=== PATIENT | female | born 1970 | race Asian ===

== ENCOUNTER 2023-09-19 12:59 | Emergency (ER) | payer OTHER ==
[~2023-09-19] VITALS: Ht 157.5 cm; Wt 62.3 kg
[2023-09-19 13:15] VITALS: TEMP 98
[2023-09-19] MEDS ORDERED: PRED-554 PO (15:46)
[2023-09-19] MEDS ORDERED: HYDR30CR3 TP (15:46)
[2023-09-19] MEDS: PredniSONE 20 MG TABLET PO ONE (16:07)
[2023-09-19] MEDS ORDERED: TRI2515C TP (16:10)
[2023-09-19 16:13] VITALS: BP 166/92; PULSE 78; RESP 16
== END 2023-09-19 16:14 | disposition home or self-care (01) ==
LOC: EMS 13:01
DX: L25.9 Unspecified contact dermatitis, unspecified cause (principal); I10 Essential (primary) hypertension; Z98.890 Other specified postprocedural states
CPT/HCPCS: 99283; J7512

== ENCOUNTER 2023-11-14 10:10 | Emergency (ER) | payer OTHER ==
[~2023-11-14] VITALS: Ht 157.5 cm; Wt 62.7 kg
[~2023-11-14 10:10] MED LIST: HYDR30CR3 TP; PRED-554 PO; TRI2515C TP
[2023-11-14 10:11] VITALS: TEMP 98.2
[2023-11-14] MEDS ORDERED: PRED-554 PO (11:50)
[2023-11-14] MEDS ORDERED: AMLO-257 PO (11:52)
[2023-11-14] MEDS ORDERED: DIPH-1243 PO (11:53)
[2023-11-14] MEDS: PredniSONE 20 MG TABLET PO ONE (12:13)
[2023-11-14] MEDS: DiphenhydrAMINE HCL 25 MG CAPSULE PO ONE (12:13)
[2023-11-14 12:18] VITALS: BP 155/90; PULSE 80; RESP 16
== END 2023-11-14 12:30 | disposition home or self-care (01) ==
LOC: EMS 10:10
DX: T78.49XA Other allergy, initial encounter (principal); I10 Essential (primary) hypertension; Z98.890 Other specified postprocedural states; X58.XXXA Exposure to other specified factors, initial encounter
CPT/HCPCS: 99283; J7512

== ENCOUNTER 2024-02-07 16:37 | Emergency (ER) | payer OTHER ==
[~2024-02-07] VITALS: Ht 157.5 cm; Wt 61.4 kg
[~2024-02-07 16:37] MED LIST changes: +AMLO-257 PO; +DIPH-1243 PO
[2024-02-07 16:49] VITALS: BP 184/86; PULSE 92; RESP 16; TEMP 98.7
[2024-02-07 17:02] LABS: COVID AG,FIA SOURCE NASAL SWAB
[2024-02-07 17:21] LABS: SARS-COV2 (COVID) ANTIGEN,FIA Negative (Negative)
[2024-02-07] MEDS ORDERED: GUAIFDM PO (18:13)
[2024-02-07] MEDS ORDERED: ACET-66 PO (18:13)
[2024-02-07] MEDS ORDERED: AMLO-257 PO (18:16)
== END 2024-02-07 18:21 | disposition home or self-care (01) ==
LOC: EMS 16:43
DX: J06.9 Acute upper respiratory infection, unspecified (principal); I10 Essential (primary) hypertension; Z20.822 Contact with and (suspected) exposure to COVID-19; Z98.890 Other specified postprocedural states
CPT/HCPCS: 99283

== ENCOUNTER 2024-08-16 20:55 | Emergency (ER) | payer OTHER ==
[~2024-08-16] VITALS: Ht 157.5 cm; Wt 61.0 kg
[~2024-08-16 20:55] MED LIST changes: +ACET-66 PO; +GUAIFDM PO
[2024-08-16 21:08] VITALS: TEMP 98.4
[2024-08-16 22:07] VITALS: BP 129/84; PULSE 82; RESP 16; O2SAT 100
[2024-08-17] MEDS: LORazepam 1 MG TABLET PO ONE (00:14)
[2024-08-17 00:37] LABS: BASOPHILS % (AUTO) 1.5 % (0.0-2.0); EOSINOPHILS % (AUTO) 2.4 % (1.0-6.0); HEMOGLOBIN 9.6 g/dL (12.0-16.0); LYMPHOCYTES # (AUTO) 1.7 K/uL (1.0-4.8); LYMPHOCYTES % (AUTO) 38.2 % (22.0-44.0); MEAN CORPUSCULAR HEMOGLOBIN 22.2 pg (26.0-34.0); MEAN CORPUSCULAR HGB CONC 30.9 G/dL (31.0-37.0); MEAN CORPUSCULAR VOLUME 72 fL (80-100); MONOCYTES # (AUTO) 0.2 K/uL (0.1-1.0); MONOCYTES % (AUTO) 4.7 % (2.0-9.0); NEUTROPHILS # (AUTO) 2.3 K/uL (1.8-7.7); NEUTROPHILS % (AUTO) 53.2 % (40.0-70.0); PLATELET COUNT (AUTO) 358 K/uL (150-450); RED BLOOD CELL COUNT(AUTO) 4.32 MIL/uL (4.00-5.20); RED CELL DISTRIBUTION WIDTH 19.8 % (11.5-14.5); WHITE BLOOD COUNT (AUTO) 4.4 K/uL (4.5-11.0)
[2024-08-17 00:42] LABS: ANION GAP 10 mmol/L (8-16); CALCIUM, TOTAL 8.9 mg/dL (8.8-10.5); CARBON DIOXIDE 28 mmol/L (22-29); CHLORIDE 99 mmol/L (98-107); CREATININE 0.81 mg/dL (0.60-1.30); GLOMERULAR FILTR. RATE CALC > 60 mL/min (>60); GLUCOSE,RANDOM 106 mg/dL (70-110); POTASSIUM 3.3 mmol/L (3.5-5.1); SODIUM SERUM 137 mmol/L (136-145); UREA NITROGEN, BLOOD 7 mg/dL (7-18)
[2024-08-17 00:50] LABS: ALCOHOL, BLOOD (SERUM) 259 mg/dL (0-10)
[2024-08-17 02:30] LABS: RBC MORPHOLOGY COMMENT ABNORMAL RBC MORPH
== END 2024-08-17 05:56 | disposition home or self-care (01) ==
LOC: EMS 20:55
DX: F41.9 Anxiety disorder, unspecified (principal); F10.129 Alcohol abuse with intoxication, unspecified; I10 Essential (primary) hypertension; Z79.52 Long term (current) use of systemic steroids; Z79.899 Other long term (current) drug therapy; Y90.8 Blood alcohol level of 240 mg/100 ml or more
CPT/HCPCS: 99283; 80048; 85025; G0480

== ENCOUNTER 2024-09-29 13:50 | Emergency (ER) | payer OTHER ==
[~2024-09-29] VITALS: Ht 154.9 cm; Wt 62.3 kg
[2024-09-29 13:57] VITALS: BP 175/95; PULSE 82; RESP 18; TEMP 97.8; O2SAT 98
[2024-09-29] MEDS: ACETAMINOPHEN 500 MG TABLET PO ONE (17:42)
== END 2024-09-29 18:37 | disposition home or self-care (01) ==
LOC: EMS 13:51
DX: S90.32XA Contusion of left foot, initial encounter (principal); I10 Essential (primary) hypertension; Z79.52 Long term (current) use of systemic steroids; Z79.899 Other long term (current) drug therapy; Z98.890 Other specified postprocedural states; W19.XXXA Unspecified fall, initial encounter; Y93.89 Activity, other specified; Y92.89 Other specified places as the place of occurrence of the external cause; Y99.0 Civilian activity done for income or pay
CPT/HCPCS: 99284

== ENCOUNTER 2024-10-12 23:57 | Emergency (ER) | payer OTHER ==
[~2024-10-12] VITALS: Ht 154.9 cm; Wt 65.0 kg
[2024-10-13 00:10] VITALS: BP 166/88; PULSE 77; RESP 16; TEMP 98.3; O2SAT 100
[2024-10-13] MEDS ORDERED: CEPH-558 PO (02:45)
[2024-10-13] MEDS ORDERED: DIPH-1243 PO (02:45)
[2024-10-13] MEDS: PredniSONE 20 MG TABLET PO ONE (02:50)
== END 2024-10-13 03:12 | disposition home or self-care (01) ==
LOC: EMS 23:59
DX: L25.9 Unspecified contact dermatitis, unspecified cause (principal); I10 Essential (primary) hypertension; Z79.52 Long term (current) use of systemic steroids; Z79.899 Other long term (current) drug therapy
CPT/HCPCS: 99283; J7512